=== PATIENT | male | born 1930 | race Caucasian/White ===

== ENCOUNTER 2016-09-11 10:17 | Emergency (ER) | payer MEDICARE ==
[~2016-09-11] VITALS: Ht 177.8 cm; Wt 82.3 kg
[~2016-09-11 10:17] MED LIST: ASPI81TA3 PO; NITR0.4T6 SL
--- NOTE | 2016-09-11 10:20 | ED.REPORT ---
HPI-Chest Pain 40 and Over Date of Service Sep 11, 2016 ED Provider: The patient is an 86 year old male who with history of coronary artery disease, hyperlipidemia, hypertension, GERD, and polymyalgia rheumatica, who was brought to the emergency department by EMS for "burning" chest pain that has been intermittent for some time. His symptoms are worse with exertion. He has had similar symptoms multiple times in the past related to GERD. He took antacid medication at home that provided no relief. Medics administered nitroglycerin x2 , ASA 324 mg, and Zofran 4 mg, which did improve his symptoms. The patient's is very sick and in the hospital. He received a distressing phone call this morning about her condition. His current pain is not similar to when he had stents placed. Nursing Notes Stated Complaint: CP Nursing Notes Reviewed: Yes Allergies: Coded Allergies: Jiumall-Eaa-Jxe Reductase Inhibitor (Verified Allergy, Unknown, 07/28/15) Scheduled Aspirin Chew (Aspirin Chew) 81 Mg Chew 81 MG PO DAILY Atorvastatin (Lipitor) 20 Mg Tablet 20 MG PO HS Metoprolol Succinate ER (Metoprolol Succinate ER) 25 Mg Tab.er.24h 25 MG PO DAILY Scheduled PRN Nitroglycerin SL (Nitroglycerin SL) 0.4 Mg Tab.subl 0.4 MG SL PRN For Chest Pain Nitroglycerin SL (Nitroglycerin SL) 0.4 Mg Tab.subl 0.4 MG SL Q5MIN PRN PRN For Chest Pain General Time Seen by MD: 10:20 Chief Complaint Chest pain Hx Obtained From: Patient, EMS Arrived By: Ambulance Sudden in Onset?: Yes Onset Occurred: More than a week ago... Symptom Duration: Intermittent Quality: Burning Radiation: : Does not radiate Migration/Movement: Reports: None Severity: Current: No pain currently Severity: Maximum: Moderate Recent Healthcare: No recent hospitalization Similar Sx Previous: Yes Past Medical History Past Medical History CAD Hyperlipidemia Hypertension GERD Hx of electrocution with residual effects Hx of intermittent 2nd degree heart block Polymyalgia rheumatica Kidney Stones Past Surgical History Stenting to RCA x2 Lithotripsy Tonsillectomy Family History Noncontributory Smoking History Unknown if Ever Smoker Social History Drug Use: Denies drug use Other Social History: Good social support, , Local resident Ambulatory Status Independent Review of Systems Constitutional: Denies: Chills, Fever Respiratory: Denies: Dyspnea on exertion, Non-productive cough, Shortness of breath Cardiovascular: Reports: Chest pain GI: Denies: Abdominal pain, Nausea, Vomiting Musculoskeletal: Denies: Back pain, Extremity pain, Neck pain Neurologic: Denies: Headache Complete sys rev & neg: except as marked. Physical Exam Initial Vital Signs Vital Signs (First) Date Time Temp Pulse Resp B/P Pulse Ox O2 Delivery O2 Flow Rate FiO2 09/11/16 10:24 36.6 91 23 145/81 93 Room Air Initial VS: Reviewed Head / Eyes: Atraumatic, Normocephalic, PERRL ENT: Mucous membranes moist, Conjunctiva normal, No scleral icterus Neck: Supple, Non-tender, Full range of motion Lymphatic: No lymphadenopathy Extremities: Vascular intact, Neuro intact, No swelling, No tenderness Skin: Warm, Dry, No cyanosis Neurologic: Alert, Oriented, Nonfocal Psychiatric: Mood/affect normal, Behavior normal, Normal thought content General/Constitutional: Awake, Alert, No acute distress, Well appearing Respiratory / Chest: Atraumatic, Breath sounds NL, Breath sounds = bilat, No respiratory distress, No rales, No rhonchi, No wheezing, No stridor, No chest tenderness Cardiovascular: Heart rate NL, Regular rhythm, Heart sounds NL, No murmurs, Peripheral circulation NL, Pulses = bilaterally, No gross BP differential Abdomen: Atraumatic, Soft, Non-tender, McBurney's non-tender, No guarding, No rebound, BS normoactive, No distention, No hernia, No palpable mass Interpretation & Diagnostics Lab Results Interpretation Result Diagram: 09/11/16 1040 09/11/16 1040 Test 09/11/16 10:40 09/11/16 12:45 White Blood Count 6.6th/mm3 (3.8-10.1) Red Blood Count 4.32mil/mm3 (4.40-5.80) Hemoglobin 14.6g/dL (13.8-17.2) Hematocrit 42.0% (41.0-50.0) Mean Corpuscular Volume 97.2fL (81-100) Mean Corpuscular Hemoglobin 33.8pg (27.0-35.0) Mean Corpuscular Hemoglobin Concent 34.8% (32.0-37.0) Red Cell Distribution Width 12.7% (12.3-15.4) Platelet Count 182bil/L (150-400) Neutrophils (%) (Auto) 47.7% (40-74) Lymphocytes (%) (Auto) 30.0% (14-46) Monocytes (%) (Auto) 8.7% (4-12) Eosinophils (%) (Auto) 12.2% (0-5) Basophils (%) (Auto) 1.1% (0-3) Sodium Level 139mEq/L (134-144) Potassium Level 4.0mEq/L (3.5-5.2) Chloride Level 100mEq/L (97-108) Carbon Dioxide Level 23mmol/L (18-29) Blood Urea Nitrogen 18mg/dL (8-27) Creatinine 1.41mg/dL (0.76-1.27) Estimat Glomerular Filtration Rate 51mL/min (>59) Glucose Level 159mg/dL (60-99) Calcium Level 9.7mg/dL (8.5-10.1) Magnesium Level 2.1mg/dL (1.6-2.6) Total Bilirubin 0.4mg/dL (0.0-1.2) Aspartate Amino Transf (AST/SGOT) 18U/L (0-50) Alanine Aminotransferase (ALT/SGPT) 5U/L (0-44) Alkaline Phosphatase 136U/L (25-160) Troponin T < 0.010ug/L (0.0-0.011) Total Protein 7.5g/dL (6.4-8.4) Albumin 4.2g/dL (3.4-5.0) Prothrombin Time 11.1sec (8.1-12.5) Prothromb Time International Ratio 1.04ratio ECG Interpretation ECG Interpretation: EKG FROM EMS shows lateral ST depressions in V4-V6, and lead I Time: 09:47 Interpreted by: ED physician ECG Interpretation: Lateral ST depressions Time: 10:38 Interpreted by: ED physician X-Ray Chest Interpretation Chest Xray Interpretation: IMPRESSION: Mild interstitial prominence stable over time, source of chest pain is not found. Dictated by: Eddie Eastman M.D. on 09/11/2016 at 11:11 Interpretation / Wet Read by: Interpret - Radiologist Re-Eval/Medical Decision Med Decision/Clinical Course Test pain relieved with nitroglycerin with associated dynamic ST changes on EKG highly concerning for unstable angina or non-ST elevation [place]. Patient was set up to be admitted. Heparin was ordered and cardiology was consulted emergently who saw the patient in the ER. Overall cardiology agreed that the EKG was concerning however due to extenuating circumstances relating to the patient's the patient will leave the hospital. Cardiology felt that this was an appropriate discharge plan. Will plan for close outpatient follow-up. Metoprolol, atorvastatin, aspirin, glycerin prescribed at the recommendation of cardiology. Return precautions given. Source of Hx: Old records, EMS Time of Eval: 11:14 Re-Evaluation/Progress Note: Rechecked the patient. Discussed results, diagnosis, and plan for admission. He denies bleeding, black/tarry stools, or hematemesis. Consultation #1: Referral / Consult Name: Pedro Landa MD Consulted With: Cardiology Call Returned at: 12:14 Drop Tester: Will see patient, Agrees with eval, Agrees with plan Consultation #2: Referral / Consult Name: Pedro Landa MD Consulted With: Cardiology Call Returned at: 13:11 Note: After evaluating the patient he feels that he can be discharged home on aspirin, metoprolol, and atorvastatin. He will set the patient up with outpatient followup and stress test. Counseled Regarding: Diagnosis, Lab results, Need for follow-up, When/why to return to ED Discharge & Departure Primary Impression: Chest pain Chest pain type: unspecified Qualified Code: R07.9 - Chest pain, unspecified Additional Impression: ST segment changes on electrocardiogram Disposition: Home Discharge Condition All VS Reviewed: Yes Condition: Stable Additional Instructions: After discussion with cardiology, you will be sent home. The executive search consultant will set up close outpatient follow-up for you. Begin taking metoprolol and atorvastatin. Use nitroglycerin as needed for chest pain. Take an aspirin daily. If you have not heard from cardiology by the end of the work day tomorrow, you should call the cardiology office. Return to ER for any persistent cardiac symptoms or other concerns. Referrals: Jose Islas DO (PCP) Pedro Landa MD Crit Care Except Billable Proc Services Performed: Time spent at bedside Scribe Attestation Portions of this note were transcribed by Trena Collins. I, Dr. O'Nasrin personally performed the history, physical exam and medical decision-making; I reviewed and confirmed the accuracy of the information in the transcribed note. Signed by: Stacy Pisano, 09/11/2016 and 1320. copies to: Jose Islas DO; Pedro Landa MD, Timothy S DO Sep 11, 2016 10:20 Trena Collins Sep 11, 2016 10:40
[2016-09-11 10:24] VITALS: BP 145/81; PULSE 91; RESP 23; O2SAT 93
[2016-09-11] MEDS ORDERED: Nitroglycerin 2% 1 Gm Ointment TOPICAL ONE (10:40)
[2016-09-11 10:52] LABS: BASOPHILS % (AUTO) 1.1 % (0-3); EOSINOPHILS % (AUTO) 12.2 % (0-5); MONOCYTES % (AUTO) 8.7 % (4-12); Mean Corpuscular Hemoglobin 33.8 pg (27.0-35.0); Mean Corpuscular Volume 97.2 fL (81-100); NEUTROPHILS % (AUTO) 47.7 % (40-74); Platelet Count 182 bil/L (150-400)
--- NOTE | 2016-09-11 11:13 | DRSVH ---
PROCEDURE: X-RAY CHEST ONE VIEW, PORTABLE ([id number]) INDICATIONS: CHEST PAIN TECHNIQUE: One view of the chest was acquired. COMPARISON: [facility], , CHEST 1VW (PORTABLE), 05/01/2009, 2:39. FINDINGS: Surgical changes and devices: None. Lungs and pleura: No pleural effusions or pneumothorax. Lungs are clear. Mediastinum: Mediastinal contours appear normal. Heart size is normal. Bones and chest wall: No suspicious bony lesions. Overlying soft tissues appear unremarkable. IMPRESSION: Mild interstitial prominence stable over time, source of chest pain is not found. Dictated by: Eddie Eastman M.D. on 09/11/2016 at 11:11 Approved by: Eddie Eastman M.D. on 09/11/2016 at 11:11
[2016-09-11 11:18] LABS: Magnesium 2.1 mg/dL (1.6-2.6)
[2016-09-11 11:22] LABS: TROPONIN T < 0.010 ug/L (0.0-0.011)
[2016-09-11] MEDS ORDERED: Heparin 25K Unit/500mL 0.45 NS 25,000 UNIT in IV Premix 1 EACH IV ONE (11:25)
[2016-09-11] MEDS ORDERED: Heparin 5,000 Unit/mL Inj IVPUSH ONE (11:25)
[2016-09-11 13:07] LABS: INR 1.04 ratio
[2016-09-11] MEDS ORDERED: ATOR20TA PO (13:15)
[2016-09-11] MEDS ORDERED: NITR0.4T6 SL (13:15)
[2016-09-11] MEDS ORDERED: METO25TA99 PO (13:15)
[2016-09-11 13:41] VITALS: BP 140/80; PULSE 74; RESP 18; O2SAT 93
--- NOTE | 2016-09-11 16:52 | CONS ---
[address] [address] CONSULTATION REPORT PATIENT: NEWT[place] CHILD : 1930 MR#: [id number] ADMIT: 09/11/2016 JOB ID: [id number] DATE OF SERVICE: 09/11/2016 REQUESTED BY: Dr. Milton Messer. REASON FOR EVALUATION: Chest discomfort. HISTORY: The patient is an 86-year-old man with history of hypertension and hypercholesterolemia. He does not smoke. He has documented history of coronary artery disease dating back to December 2003 when he presented with acute inferior myocardial infarction. He underwent emergent angioplasty and stent placement to the occluded right coronary artery with drug-eluting stent by Dr. Hearn. He was lost to followup before having another recurrent chest discomfort in [address] Guzman performed coronary stent to the circumflex artery and obtuse marginal branch in April 2009. The patient stopped taking medication on his own due to he bruises easily. 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 The history was obtained from the patient and his [id number]. The patient is quite anxious. He has been under a lot of stress since his has been in the hospital for over one month. She is in intensive care unit. This morning, the patient received a phone call from the hospital regarding his . He could not understand the message. He broke down. He experienced chest burning, 10/10. It radiated up from the epigastic area to mid sternum area. It was associated with nausea. He denied shortness of breath or diaphoresis. Medics were called and nitroglycerin was given. His chest discomfort disappeared after nitroglycerin. The total episode lasted for 10 minutes. He is quite anxious to be with his . His daily activity includes lots of TV. He can walk to the mailbox and take the garbage can out without any problems. It is about 50 feet. He does not have difficulty walking around. He climbed up one flight of stairs when he went to his [id number]'s house before New Year's. PAST MEDICAL HISTORY: 1. Cardiac history, as outlined above. 2. Hypertension. 3. Hypercholesterolemia. 4. Chronic kidney disease, stage 3. 5. Polymyalgia rheumatica. 6. Elevated kappa light chain, followed by Dr. Carias. CURRENT MEDICATIONS: Aspirin 81 mg daily. ALLERGIES: No known allergies. SOCIAL HISTORY: He lives with his in his own house in [place]. He has been under a lot of stress due to his is in the hospital for over one month. There were discussions about palliative care. He does not smoke. He denies alcohol. FAMILY HISTORY: No history of premature coronary artery disease. REVIEW OF SYSTEMS: All 10 systems are reviewed and noncontributory. PHYSICAL EXAMINATION: Reveals an elderly male appearing in no acute distress. He is tearful when taking about his . Temperature is 36.6. Blood pressure is 145/81. Pulse 91. Skin is warm and dry. Head and face have normal configuration. Anicteric sclerae. Moist mucosa. Full mouth dentures. Neck: No jugular venous distention or carotid bruits. Chest: Normal expansion. Lungs are clear to auscultation. Heart: The first and second heart sounds are diminished. Grade 1/6 holosystolic murmur at the apex. Grade 1/6 systolic ejection murmur at the left upper sternal border. Abdomen: Soft, nontender. Extremities: No clubbing, cyanosis, or edema. Peripheral pulses are equal bilaterally. Neurologic: Grossly intact. EKG from the field showed lateral ST-segment depression. EKG in the emergency department showed normal sinus rhythm rate 62 per minute. Left ventricular hypertrophy with improved ST depression. BLOOD TESTS: Show hemoglobin 14.6, WBC 6.6. Platelets 182. Sodium 139, potassium 4.0, chloride 100, bicarb 23, BUN 18, creatinine 1.41, glucose 159, troponin T less than 0.01. IMPRESSION: 1. Angina pectoris, secondary to stress. 2. Anxiety. 3. Status post stent to the right coronary artery in 2003 and circumflex artery in 2008. 4. Hypertension. 5. Hypercholesterolemia. 6. Chronic kidney disease, stage 3. 7. Questionable compliance. PLAN: I discussed with the patient and his family regarding further evaluation of his ischemic heart disease. It is quite obvious that the patient would like to see his . It would put him under more stress if he is being admitted to the hospital. I will start him on metoprolol succinate 25 mg once daily, atorvastatin 20 mg at h.s. and nitroglycerin sublingual p.r.n. The importance of being compliant to medication was emphasized. I have arranged for him to undergo Lexiscan sestamibi and echocardiogram. I believe that the patient could be discharged from the hospital for him to see his . MISSY
[2016-10-12] MEDS ORDERED: [UNRECOGNIZED DRUG - OTHER] PO (14:57)
[2016-10-12] MEDS ORDERED: OMEP20TA24 PO (14:57)
== END 2016-09-11 13:45 | disposition home or self-care (01) ==
LOC: SED 10:17
DX: R07.9 Chest pain, unspecified (principal); R94.31 Abnormal electrocardiogram [ECG] [EKG]; I10 Essential (primary) hypertension; I25.10 Atherosclerotic heart disease of native coronary artery without angina pectoris; K21.9 Gastro-esophageal reflux disease without esophagitis; E78.5 Hyperlipidemia, unspecified; Z79.82 Long term (current) use of aspirin; Z88.8 Allergy status to other drugs, medicaments and biological substances